=== PATIENT | male | born 1955 | race Caucasian/White ===

== ENCOUNTER 2019-02-04 12:50 | Emergency (ER) | payer OTHER, MEDICARE, MEDICAID ==
[~2019-02-04] VITALS: Ht 177.8 cm; Wt 127.0 kg
[~2019-02-04 12:50] MED LIST: AMBIEN10 MG OR; BACTRIM DS1 TAB OR; CEPHALEXIN500 MG OR; CLONIDINE0.1 MG OR; DILAUDID8 MG OR; DOXEPIN HCL10 MG PO; OPANA ER40 M1 PO; OPANA10 MG PO; OXYCODONE OR; XANAX XR1 MG PO; XANAX1 MG OR
[2019-02-04 13:17] LABS: IMMATURE GRANULOCYTES 0.3 % (0.0-5.0); MEAN CORPUSCULAR HGB 28.5 pG CALC (26.0-32.0); MEAN CORPUSCULAR HGB CONC 31.3 g/L CALC (32.0-36.0); NEUT# 4.88 thou/uL (1.82-7.42); RED BLOOD COUNT 4.24 mill/uL (4.70-6.10); RED CELL DISTRI WIDTH 13.1 % (11.5-15.5)
[2019-02-04 13:20] LABS: HEMATOCRIT 38.6 % (39.0-50.0); HEMOGLOBIN 12.1 g/dl (14.0-18.0)
[2019-02-04 14:11] LABS: ALBUMIN 4.3 g/dL (3.2-5.0); ALKALINE PHOSPHATASE 109 u/l (38-126); BUN 22 mg/dL (8-23); BUN/CREATININE RATIO 17 (12-20 (CALC)); CHLORIDE 110 mmol/l (95-108); CREATININE 1.3 mg/dL (0.7-1.3); GFR 55 ML/MIN (>=60 (CALC)); GFR FOR AFR.AMER. > 60 ML/MIN (>=60 (CALC)); POTASSIUM 4.3 mmol/l (3.5-5.1); SGOT/AST 30 u/l (19-48); SODIUM 142 mmol/l (137-146); TOTAL PROTEIN 7.7 g/dL (6.3-8.2)
[2019-02-04 14:18] LABS: ANION GAP 13 (6-22 (CALC)); BILIRUBIN, TOTAL 0.4 mg/dL (0.0-1.4); CARBON DIOXIDE 23 mmol/l (22-30)
[2019-02-04 14:23] LABS: MYOGLOBIN 145 ng/mL (0 - 121)
[2019-02-04] MEDS ORDERED: ZITHROMAX250 MG PO (15:08)
[2019-02-04] MEDS ORDERED: ROBITUSSIN AC10 ML PO (15:08)
[2019-02-04] MEDS ORDERED: MEDDOSEPAK PO (15:08)
[2019-02-04 16:00] VITALS: BP 162/68
== END 2019-02-04 16:38 | disposition home or self-care (01) | DRG 195 ==
LOC: ED 12:50
PROVIDERS: Emergency Medicine
DX: J18.9 Pneumonia, unspecified organism (principal); J06.9 Acute upper respiratory infection, unspecified; F17.210 Nicotine dependence, cigarettes, uncomplicated

== ENCOUNTER 2019-02-16 01:34 | Emergency (ER) | payer OTHER, MEDICARE ==
[~2019-02-16] VITALS: Ht 177.8 cm; Wt 125.0 kg
[~2019-02-16 01:34] MED LIST changes: +MEDDOSEPAK PO; +ROBITUSSIN AC10 ML PO; +ZITHROMAX250 MG PO
[2019-02-16] MEDS ORDERED: LORTAB 1010 MG PO (02:16)
[2019-02-16 02:20] VITALS: BP 146/64
== END 2019-02-16 03:40 | disposition home or self-care (01) | DRG 605 ==
LOC: ED 03:37
DX: S80.12XA Contusion of left lower leg, initial encounter (principal); W19.XXXA Unspecified fall, initial encounter

== ENCOUNTER 2019-02-20 21:05 | Emergency (ER) | payer OTHER, MEDICARE ==
[~2019-02-20] VITALS: Ht 208.3 cm; Wt 127.7 kg
[~2019-02-20 21:05] MED LIST changes: +LORTAB 1010 MG PO
[2019-02-20 23:00] VITALS: BP 131/91
[2019-02-20] MEDS ORDERED: VENTOLIN HF1 IN (23:10)
== END 2019-02-20 23:22 | disposition home or self-care (01) | DRG 563 ==
LOC: ED 21:05
DX: S93.401A Sprain of unspecified ligament of right ankle, initial encounter (principal); M19.071 Primary osteoarthritis, right ankle and foot; J40 Bronchitis, not specified as acute or chronic; I10 Essential (primary) hypertension; I25.10 Atherosclerotic heart disease of native coronary artery without angina pectoris; F17.200 Nicotine dependence, unspecified, uncomplicated; X50.0XXA Overexertion from strenuous movement or load, initial encounter

== ENCOUNTER 2019-05-06 | Observation (INO) | payer OTHER, MEDICARE ==
[~2019-05-06] MED LIST changes: +VENTOLIN HF1 IN
--- NOTE | 2019-05-06 10:02 | NUR ---
PATIENT TO ROOM VIA EMS AND PHYSICIAN AT BEDSIDE FOR EVAL
--- NOTE | 2019-05-06 10:39 | NUR ---
PT PRESENTS WITH CHEST PAIN THAT STARTED FOUR DAYS AGO. PT DISCRIBES RADIATING PAIN THAT RADIATES DOWN BOTH ARMS. PT FEELS NUMBNESS AND TINGLING IN HANDS BILATERALLY. EKG=NSR. CAP REFILL BRISK. O2SAT 95%. PT DENIES ANY DIZZINESS, SOB, N/V. PAIN 11/12 PTS OTHER CONCERN IS AN ULCER THAT BURST YESTERDAY ON HIS HEEL. THERE IS A 5CM x 5CM BLISTER BURST ON THE BOTTOM OF LEFT HEEL. WILL CONTINUE TO MONITOR.
--- NOTE | 2019-05-06 10:40 | NUR ---
PT WAS INFORMED ABOUT A URINE SAMPLE THAT IS NEEDED. PT STATED THAT HE HAD NOT HAD ANYTHING TO DRINK IN TWO DAYS AND WILL NOT BE ABLE TO PROVIDE A SAMPLE. PT WAS OFFERED WATER PO FLUID TO ENCOURAGE URINATION, PT DECLINED. "I DONT DRINK WATER, GIVE ME SODA". A COLA DRINK WAS GIVIN.
[2019-05-06 11:10] LABS: HEMATOCRIT 38.1 % (39.0-50.0); HEMOGLOBIN 11.9 g/dl (14.0-18.0); IMMATURE GRANULOCYTES 0.5 % (0.0-5.0); MEAN CORPUSCULAR HGB 26.7 pG CALC (26.0-32.0); MEAN CORPUSCULAR HGB CONC 31.2 g/L CALC (32.0-36.0); NEUT# 9.22 thou/uL (1.82-7.42); RED BLOOD COUNT 4.46 mill/uL (4.70-6.10); RED CELL DISTRI WIDTH 14.6 % (11.5-15.5)
[2019-05-06 11:15] LABS: MEAN CELL VOLUME 85.4 fL CALC (80.0-100.0)
[2019-05-06] MEDS ORDERED: DILAUDID8 MG PO (11:15)
[2019-05-06] MEDS ORDERED: OXYCONTIN40 MG PO (11:16)
--- NOTE | 2019-05-06 11:18 | NUR ---
PT REMINDED ABOUT URINE SAMPLE AND PT RESPONDED "THAT AINT GONNA HAPPEN RIGHT NOW I TELL YOU THAT MUCH". I OFFERED TO GIVE HIM WATER AND HE DECLINED BY SAYING "I DONT DRINK WATER, I TOLD YOU ALREADY." PT DENIED ANY OTHER NEEDS, WILL CONTINUE TO MONITOR
[2019-05-06 11:29] LABS: ALBUMIN 3.8 g/dL (3.2-5.0); ALKALINE PHOSPHATASE 72 u/l (38-126); ANION GAP 15 (6-22 (CALC)); BILIRUBIN, TOTAL 0.5 mg/dL (0.0-1.4); BUN 16 mg/dL (8-23); BUN/CREATININE RATIO 19 (12-20 (CALC)); CARBON DIOXIDE 22 mmol/l (22-30); CHLORIDE 108 mmol/l (95-108); CREATININE 0.8 mg/dL (0.7-1.3); GFR > 60 ML/MIN (>=60 (CALC)); GFR FOR AFR.AMER. > 60 ML/MIN (>=60 (CALC)); SGOT/AST 21 u/l (19-48); SODIUM 142 mmol/l (137-146); TOTAL PROTEIN 7.2 g/dL (6.3-8.2)
[2019-05-06 11:42] LABS: MYOGLOBIN 34 ng/mL (0 - 121)
--- NOTE | 2019-05-06 12:12 | NUR ---
SBAR PRINTED TO FLOOR
--- NOTE | 2019-05-06 13:34 | NUR ---
PT TRAY SET ASSIDE. PT WAS REMINDED THE IMPORTANCE OF LAYING WITH ALL BODY PARTS IN STRETCHER ALIGNED TO NOT FALL OUT OF BED. PT STATED "I AINT FALLING OUT YOU ARE OUT OF YOUR MIND. I AM COMFORTABLE THIS WAY"
--- NOTE | 2019-05-06 14:15 | NUR ---
ATTEMPTED TO GIVE REPORT TO ANDRES, HEAT TREATING FURNACE TENDER NOTIFIED ME THAT NURSE WAS ADMINISTERING A MEDICATION. NURSE IS SAIT TO BE CALLING ME BACK WHEN AVAILIABLE
--- NOTE | 2019-05-06 14:34 | NUR ---
REPORT CAROLINE CAMPOS RN
--- NOTE | 2019-05-06 14:43 | NUR ---
PT TRANSPORTED VIA W/C TO MED SURG IN STABLE COND AND IN NO DISTRESS. CARE ASSUMED TO KELSIE
--- NOTE | 2019-05-06 14:43 | NUR ---
RECEIVED FROM ER VIA WC INTO ROOM 273. AMBULATED TO STANDING SCALE FOR ADMISSION WEIGHT AND THEN TO BED. ORIENTED TO SURROUNDSING. EXPLAINED USE OF CALL ORTIZ, TV AND BED CONTROLS.
--- NOTE | 2019-05-06 15:00 | NUR ---
ADMISSION ASSESSMENT COMPLETED. PATIENT CALM AND COOPERATIVE. RESP NON-LABORED. LUNGS CLEAR. DRESSING TO RIGHT FOOT IN PLACE, CDI.
[2019-05-06 16:17] VITALS: BP 170/60
--- NOTE | 2019-05-06 16:30 | NUR ---
SITTING AT SIDE OF BED. C/O RIGHT FOOT PAIN. OFFERED TYLENOL OR MOTRIN AND PATIENT REFUSES. PATIENT STATES "I HAVE STRONGER STUFF THAN THAT AT HOME."
--- NOTE | 2019-05-06 17:30 | NUR ---
BLOOD DRAWN FROM SALINE LOCK FOR TROPONIN LEVEL. PATIENT STATES HE IS GOING TO LEAVE AMA REQUESTING PAIN MED OTHER THAN TYLENOL OR MOTRIN WHICH HAVE BEEN OFFERED TO HIM.
--- NOTE | 2019-05-06 19:15 | NUR ---
SALINE LOCK IN LAC DC'D WITH CATHETER INTACT. DR MO INFORMED OF PATIENT LEAVING AMA. PATIENT ESCORTED TO ER WAITING ROOM FOR HIS RIDE.
[2019-05-07] MEDS ORDERED: BACTRIM DS1 TAB PO (12:53)
[2019-10-17] MEDS ORDERED: HYDROCODONE/ACE1 TAB PO (16:10)
== END 2019-05-06 19:10 | disposition left against medical advice (07) | DRG 313 ==
PROVIDERS: Emergency Medicine; ADMIT Internal Medicine
DX: R07.9 Chest pain, unspecified (principal); L97.419 Non-pressure chronic ulcer of right heel and midfoot with unspecified severity; I10 Essential (primary) hypertension; I25.10 Atherosclerotic heart disease of native coronary artery without angina pectoris; F17.200 Nicotine dependence, unspecified, uncomplicated; Z95.1 Presence of aortocoronary bypass graft
CPT/HCPCS: G0378

== ENCOUNTER 2019-05-07 | Emergency (ER) | payer OTHER, MEDICARE ==
[~2019-05-07] MED LIST changes: +DILAUDID8 MG PO; +OXYCONTIN40 MG PO
[2019-05-07 12:02] LABS: HEMATOCRIT 38.8 % (39.0-50.0); HEMOGLOBIN 11.8 g/dl (14.0-18.0); IMMATURE GRANULOCYTES 0.4 % (0.0-5.0); MEAN CELL VOLUME 87.6 fL CALC (80.0-100.0); MEAN CORPUSCULAR HGB 26.6 pG CALC (26.0-32.0); MEAN CORPUSCULAR HGB CONC 30.4 g/L CALC (32.0-36.0); NEUT# 7.02 thou/uL (1.82-7.42); RED BLOOD COUNT 4.43 mill/uL (4.70-6.10); RED CELL DISTRI WIDTH 14.9 % (11.5-15.5)
[2019-05-07] MEDS ORDERED: BACTRIM DS1 TAB PO (12:53)
[2019-05-07 12:56] LABS: ALKALINE PHOSPHATASE 83 u/l (38-126); ANION GAP 13 (6-22 (CALC)); BILIRUBIN, TOTAL 0.4 mg/dL (0.0-1.4); BUN 20 mg/dL (8-23); BUN/CREATININE RATIO 22 (12-20 (CALC)); CARBON DIOXIDE 24 mmol/l (22-30); CHLORIDE 109 mmol/l (95-108); CREATININE 0.9 mg/dL (0.7-1.3); GFR > 60 ML/MIN (>=60 (CALC)); GFR FOR AFR.AMER. > 60 ML/MIN (>=60 (CALC)); SGOT/AST 21 u/l (19-48); SODIUM 142 mmol/l (137-146); TOTAL PROTEIN 7.9 g/dL (6.3-8.2)
[2019-05-07 13:00] LABS: URINE BILIRUBIN - DIPSTICK NEGATIVE (NEGATIVE); URINE BLOOD DIPSTICK NEGATIVE (NEGATIVE); URINE COLOR YELLOW; URINE GLUCOSE - DIPSTICK NEGATIVE (NEGATIVE); URINE KETONE NEGATIVE (NEGATIVE); URINE LEUK ESTERASE NEGATIVE (NEGATIVE); URINE NITRITE - DIPSTICK NEGATIVE (Negative); URINE PROTEIN - DIPSTICK TRACE mg/dL (NEG-TRACE); URINE SPECIFIC GRAVITY 1.025; URINE UROBILINOGEN - DIPSTICK 0.2 E.U./dL (0.2)
[2019-05-07 13:08] LABS: MYOGLOBIN 29 ng/mL (0 - 121)
[2019-10-17] MEDS ORDERED: HYDROCODONE/ACE1 TAB PO (16:10)
== END 2019-05-07 12:56 | disposition left against medical advice (07) | DRG 313 ==
PROVIDERS: Emergency Medicine
DX: R07.9 Chest pain, unspecified (principal); R06.02 Shortness of breath; I10 Essential (primary) hypertension; I25.10 Atherosclerotic heart disease of native coronary artery without angina pectoris; Z95.1 Presence of aortocoronary bypass graft; Z91.19 Patient's noncompliance with other medical treatment and regimen

== ENCOUNTER 2019-06-05 14:23 | Emergency (ER) | payer MEDICARE ==
[~2019-06-05 14:23] MED LIST changes: +BACTRIM DS1 TAB PO
[2019-06-05 14:31] VITALS: BP 146/129
[2019-10-17] MEDS ORDERED: HYDROCODONE/ACE1 TAB PO (16:10)
== END 2019-06-05 14:50 | disposition left against medical advice (07) ==
LOC: ED 14:23 → LWOBS 14:49 → ED 14:49 → LWOBS 14:50
DX: Z53.21 Procedure and treatment not carried out due to patient leaving prior to being seen by health care provider (principal)

== ENCOUNTER 2019-06-22 | Emergency (ER) | payer MEDICARE ==
[2019-06-22 16:02] LABS: URINE BILIRUBIN - DIPSTICK NEGATIVE (NEGATIVE); URINE BLOOD DIPSTICK NEGATIVE (NEGATIVE); URINE COLOR YELLOW; URINE GLUCOSE - DIPSTICK NEGATIVE (NEGATIVE); URINE KETONE NEGATIVE (NEGATIVE); URINE LEUK ESTERASE NEGATIVE (NEGATIVE); URINE NITRITE - DIPSTICK NEGATIVE (Negative); URINE PH 8.5 (4.5-8.0); URINE PROTEIN - DIPSTICK NEGATIVE (NEG-TRACE); URINE SPECIFIC GRAVITY 1.025; URINE UROBILINOGEN - DIPSTICK 0.2 E.U./dL (0.2)
[2019-06-22 16:05] LABS: BARBITURATES NEGATIVE (NEGATIVE); COCAINE NEGATIVE (NEGATIVE); METHADONE NEGATIVE (NEGATIVE); OXCYCODONE POSITIVE (NEGATIVE); TETRAHYDROCANNABIONOL NEGATIVE (NEGATIVE); TRICYLIC ANTIDEPRESSANTS NEGATIVE (NEGATIVE)
[2019-06-22 17:36] LABS: HEMATOCRIT 33.7 % (39.0-50.0); IMMATURE GRANULOCYTES 0.4 % (0.0-5.0); MEAN CELL VOLUME 83.8 fL CALC (80.0-100.0); MEAN CORPUSCULAR HGB 24.9 pG CALC (26.0-32.0); MEAN CORPUSCULAR HGB CONC 29.7 g/dL CAL (32.0-36.0); NEUT# 6.79 thou/uL (1.82-7.42); RED BLOOD COUNT 4.02 mill/uL (4.70-6.10); RED CELL DISTRI WIDTH 16.6 % (11.5-15.5)
[2019-06-22 17:57] LABS: ALBUMIN 3.2 g/dL (3.2-5.0); ALKALINE PHOSPHATASE 84 u/l (38-126); BILIRUBIN, TOTAL 0.5 mg/dL (0.0-1.4); BUN 7 mg/dL (8-23); BUN/CREATININE RATIO 12 (12-20 (CALC)); CHLORIDE 105 mmol/l (95-108); CREATININE 0.6 mg/dL (0.7-1.3); ETHYL ALCOHOL 0 mg/dl (0-30); GFR > 60 ML/MIN (>=60 (CALC)); GFR FOR AFR.AMER. > 60 ML/MIN (>=60 (CALC)); MAGNESIUM 1.8 mg/dL (1.6-2.3); POTASSIUM 4.8 mmol/l (3.5-5.1); SGOT/AST 27 u/l (19-48); SODIUM 139 mmol/l (137-146); TOTAL PROTEIN 6.5 g/dL (6.3-8.2)
[2019-06-22 18:02] LABS: ANION GAP 10 (6-22 (CALC)); CARBON DIOXIDE 29 mmol/l (22-30)
[2019-10-17] MEDS ORDERED: HYDROCODONE/ACE1 TAB PO (16:10)
== END 2019-06-22 23:45 ==
PROVIDERS: Family Medicine
DX: R45.851 Suicidal ideations (principal); J44.1 Chronic obstructive pulmonary disease with (acute) exacerbation; G89.29 Other chronic pain; I10 Essential (primary) hypertension; I25.10 Atherosclerotic heart disease of native coronary artery without angina pectoris; F17.200 Nicotine dependence, unspecified, uncomplicated

== ENCOUNTER 2019-07-20 11:46 | Inpatient (IN) | payer OTHER, MEDICARE ==
[~2019-07-20] VITALS: Ht 177.8 cm; Wt 124.0 kg
--- NOTE | 2019-07-20 11:55 | NUR ---
PT TO ROOM VIA WHEELCHAIR FOR BEDSIDE TRIAGE.
--- NOTE | 2019-07-20 12:15 | NUR ---
IV SITE TO THE LEFT HAND OBTAINED SITE IS POSITIONAL. MD AWARE AND WILL ORDER A MID LINE.
--- NOTE | 2019-07-20 12:20 | NUR ---
MEDICATIONS NOT GIVIN AT THIS TIME BECAUSE OF ORDERED PICC LINE
--- NOTE | 2019-07-20 13:00 | NUR ---
PT PRESENSTS WITH SWOLLEN, DARK PIGMENTED HOT TO THE TOUCH RIGHT LEG. SWELLING AND PIGMENTATION REACHES ABOUT MID THEIGH. PT HAS A 5CM BY 5CM ULCER IN THE RIGHT HEEL WITH SLOTHING. WHEN REMOVING DRESSING, TISSUE AND SLOTH WAS STICKING TO BANDAGE. PT STATES HAVING THIS PROBLEM FOR TWO MONTHS. PT STATES NOT FOLLOWING UP WITH APPOINTMENTS FOR WOUND CARE. WILL CONTINUE TO [facility].
[2019-07-20 13:05] LABS: HEMATOCRIT 32.8 % (39.0-50.0); HEMOGLOBIN 9.8 g/dl (14.0-18.0); IMMATURE GRANULOCYTES 0.2 % (0.0-5.0); MEAN CELL VOLUME 83.2 fL CALC (80.0-100.0); MEAN CORPUSCULAR HGB 24.9 pG CALC (26.0-32.0); MEAN CORPUSCULAR HGB CONC 29.9 g/dL CAL (32.0-36.0); NEUT# 6.66 thou/uL (1.82-7.42); RED BLOOD COUNT 3.94 mill/uL (4.70-6.10); RED CELL DISTRI WIDTH 17.9 % (11.5-15.5)
--- NOTE | 2019-07-20 13:52 | NUR ---
PT RETURNED FOR RECIEVING PICC LINE INSERTION. MEDS INTITIATED. MONITOR CONNECTED. PT DENIES ANY OTHER NEEDS
--- NOTE | 2019-07-20 14:00 | NUR ---
PT RECONNECTED TO MONITORING EQUIPMENT. AND CALL LIGHT PLACED WITHIN REACH
--- NOTE | 2019-07-20 15:11 | NUR ---
PT AT MRI
[2019-07-20] MEDS ORDERED: OXYCODONE5 M1 PO (15:14)
--- NOTE | 2019-07-20 15:15 | NUR ---
UPDATED MED REC PER CLAIMS HISTORY
--- NOTE | 2019-07-20 15:18 | NUR ---
VITALS ARE NOT TAKEN EVERY HOUR SINCE PT WAS IN CT FOR PICC LINE AND MRI
[2019-07-20 15:47] LABS: URINE BILIRUBIN - DIPSTICK NEGATIVE (NEGATIVE); URINE BLOOD DIPSTICK NEGATIVE (NEGATIVE); URINE COLOR YELLOW; URINE GLUCOSE - DIPSTICK NEGATIVE (NEGATIVE); URINE KETONE NEGATIVE (NEGATIVE); URINE LEUK ESTERASE NEGATIVE (NEGATIVE); URINE NITRITE - DIPSTICK NEGATIVE (Negative); URINE PROTEIN - DIPSTICK NEGATIVE (NEG-TRACE); URINE SPECIFIC GRAVITY >=1.030
--- NOTE | 2019-07-20 16:35 | NUR ---
COMMUNICATION HANDOFF REPORT RECEIVED FROM KIRSTIN CHILDS RN. AWAITING PT'S ARRIVAL TO ROOM
--- NOTE | 2019-07-20 16:40 | NUR ---
GAVE REPORT TO TAN
--- NOTE | 2019-07-20 17:30 | NUR ---
PT WAS TAKEN LATER THEN WANTED BECAUSE OF ATTENDANCE TO A CRITICAL PT. PT TRANSPORTED TO [facility] STABLE AND IN NO DISTRESS VIA STRETCHER. CARE ASSUMED TO TAN Admission Note Report Given to: Transported by: Wheelchair X Stretcher Transported with: X Nurse Transporter X Patent IV O2 Silk Examiner Location: ICU X MS2
--- NOTE | 2019-07-20 17:35 | NUR ---
PT ORIENTED TO ROOM, CALL LIGHT, BED CONTROL AND TV REMOTE. PT IS ABLE TO MAKE HIS NEEDS KNOWN. PT COMPLAIN OF 9/10 PAIN. PT STATES TYLENOL NOT EFFECTIVE IN ONTROLLING HIS PAIN. CPA TAX WILL ADMINISTER PAIN MEDS PER ORDER
[2019-07-20 17:40] VITALS: BP 167/79
[2019-07-20 19:11] VITALS: BP 110/60
--- NOTE | 2019-07-20 19:37 | NUR ---
PT SITTING ON THE SIDE OF THE BED. A&O X3. PT C/O RT LEG PAIN. WOUNDS NOTED TO THE SIDE OF THE RT LEG AND TO THE RT HEEL. PER PT HE WAS GETTING WOUND CARE THROUGH HOME [facility]ALTH AND THEY D/C HIS VISITS. PICTURES TO BE OBTAINED AND PLACED IN THE CHART WITH A DRESSING TO BE APPLIED UNTIL WOUND CARE CAN BE CONSULTED. ASSESSMENT COMPLETED. DISCUSSED POC. CALL LIGHT IN REACH. CONTINUE TO MONITOR.
[2019-07-20 19:40] LABS: ALBUMIN 3.1 g/dL (3.2-5.0); ALKALINE PHOSPHATASE 81 u/l (38-126); ANION GAP 8 (6-22 (CALC)); BILIRUBIN, TOTAL 0.5 mg/dL (0.0-1.4); BUN 13 mg/dL (8-23); BUN/CREATININE RATIO 21 (12-20 (CALC)); CARBON DIOXIDE 33 mmol/l (22-30); CHLORIDE 101 mmol/l (95-108); CREATININE 0.6 mg/dL (0.7-1.3); GFR > 60 ML/MIN (>=60 (CALC)); GFR FOR AFR.AMER. > 60 ML/MIN (>=60 (CALC)); SGOT/AST 16 u/l (19-48); SODIUM 138 mmol/l (137-146)
[2019-07-20 19:41] LABS: POTASSIUM 3.6 mmol/l (3.5-5.1)
--- NOTE | 2019-07-21 00:02 | NUR ---
PT SLEEPING IN BED. NO DISTRESS NOTED. RESP EVEN AND UNLABORED. CONTINUE TO MONITOR.
[2019-07-21 04:17] VITALS: BP 143/74
--- NOTE | 2019-07-21 05:03 | NUR ---
PT SLEEPING IN BED. RESP EVEN AND UNLABORED. CONTINUE TO MONITOR
--- NOTE | 2019-07-21 06:29 | NUR ---
DRESSING APPLIED TO WOUNDS WITH HEEL PROTECTORS IN PLACE. PT TOLERATED WELL.
--- NOTE | 2019-07-21 07:05 | NUR ---
REPORT RECEIVED FROM ANN BAILEY. PT RESTING IN BED SEMI FOWLERS WITH HAT OVER FACE; OREINTED X 3. C/O 8/10 RLE PAIN. DRESSING TO RIGHT HEEL AND KELLER CDI. RESPIRATIONS EVEN AND UNLABORED ON ROOM AIR. PLAN OF CARE REVIEWED. PT ENCOURAGED TO VERBALIZE CONCERNS. STATES UNDERSTANDING. SAFETY MEASURES IN PLACE. CALL LIGHT WITHIN REACH.
[2019-07-21 08:00] VITALS: BP 144/69
--- NOTE | 2019-07-21 10:35 | NUR ---
LATOYA 5MG GIVEN PER REQUEST FOR 810 RLE PAIN.
[2019-07-21] MEDS ORDERED: MAXIDE1 COMBO PO (10:40)
[2019-07-21] MEDS ORDERED: SIMVASTATIN40 MG PO (10:40)
[2019-07-21] MEDS ORDERED: CITALOPRAM10 M1 PO (10:41)
[2019-07-21 16:00] VITALS: BP 150/73
[2019-07-21 19:25] VITALS: BP 159/70
--- NOTE | 2019-07-21 19:45 | NUR ---
PT SLEEPING IN BED. NO DISTRESS NOTED, AWAKENED TO COMPLETE ASSESSMENT. PT NOT INTERACTING WITH CONVERSATION AND STATES THAT ALL HE NEEDS IS SOME PAIN MEDICATION, EXPLAINED THAT I WOULD VERIFY WHEN HE COULD HAVE SOME MEDICATION, PT VERBALIZED UNDERSTANDING. WOUND LEFT OPEN TO AIR PER REPORT AND AFTER THE VISIT OF DR TORREZ. WILL FOLLOW UP ON CONSULT NOTE. ASSESSMENT COMPLETED. DISCUSSED POC. CALL LIGHT IN REACH. CONTINUE TO MONITOR.
--- NOTE | 2019-07-21 22:55 | NUR ---
PER PT "5 MG OF OXYCODONE IS NOT GOING TO DO ANYTHING FOR ME RIGHT NOW", TOLD PT THAT 40 MG TAB WAS GIVEN AN HOUR PRIOR. PT QUESTIONED THE ACCURACY OF THE MEDICATION ADMINISTRATION, SHOWED PT THE TIME THE MEDICATION WAS ADMINISTERED. PT VERBALIZED UNDERSTANDING.
--- NOTE | 2019-07-21 23:00 | NUR ---
DRESSING CHANGE DONE TO RT HEEL AND WOUND TO THE SIDE OF THE RT LEG. PT TOLERATED WELL.
[2019-07-22 04:20] VITALS: BP 153/63
[2019-07-22 05:48] VITALS: BP 92/60
[2019-07-22 08:15] VITALS: BP 169/59
--- NOTE | 2019-07-22 08:15 | NUR ---
ASSESSMENT IS COMPLETED: IV SITE IS FREE FROM REDNESS OR EDEMA. HR IS REG, PULSES ARE STRONG X4., ABD IS SOFT WITH ACTIVE BS R LEG HAS A DRESSING IS CDI. HAS +3 PITTING EDEMA NOTED. ON R LEG.
--- NOTE | 2019-07-22 12:45 | NUR ---
PT WANTED TO GO TO THE BATHROOM INSISTED ON HAVING IV DISCONNECTED. FLUSHED WELL. CONTINUE TO OBSERVE AND MONITOR.
--- NOTE | 2019-07-22 16:05 | NUR ---
PT IS REQUESTING PAIN MEDICATION. INFORMED OF WHAT WAS ORDERED AND WHEN ITS DUE. INQUIRED ABOUT GETTING ANYTHING ELSE. WAS TOLD NO .
[2019-07-22 18:55] VITALS: BP 198/98
--- NOTE | 2019-07-22 19:20 | NUR ---
REPORT RECEIVED FROM ANN [place]. PT RESTING IN BED. PT BP ELIVATED. MD TO BE NOTIFIED. SAFETY PRECAUTIONS IN PLACE. WILL CONTINUE TO MONITOR.
--- NOTE | 2019-07-22 19:30 | NUR ---
SPOKEW ITH DR MO RE: BP BEING HIGH, HOME MEDICATIONS WERE STOPPED. AND NOW REORDERED BY DR MO.
--- NOTE | 2019-07-22 19:45 | NUR ---
PT BP ELIVATED, PT MEDICATED PER EMAR ORDERS.
[2019-07-22 20:57] VITALS: BP 117/74
[2019-07-22 20:58] VITALS: BP 177/78
--- NOTE | 2019-07-22 21:24 | NUR ---
PT RESTING IN BED ALERT AND ORIENTED. RESPIRATIONS EVEN AND UNLABORED ON RA. LUNGS SOUND CLEAR. PEDAL PULSES WEAK. DRESSING TO RIGHT FOOT CHANGED PT TOLERATED WELL. SAFETY PRECAUTIONS IN [place]. WILL CONTINUE TO MONITOR.
[2019-07-23 00:23] VITALS: BP 186/82
--- NOTE | 2019-07-23 01:33 | NUR ---
PT RESTING IN BED AlERT AND ORIETNED. PT BP ELIVATED, PT MEDICATED PER EMAR ORDERS. SAFETY PRECAUTIONS IN PLACE. WILL CONTINUE TO MONITOR.
[2019-07-23 03:00] VITALS: BP 144/66
--- NOTE | 2019-07-23 04:05 | NUR ---
PT RESTING IN BED, NO S/S OF DISTRESS AT THIS TIME. SAFETY PRECAUTIONS IN PLACE. WILL CONTINUE TO MONITOR.
[2019-07-23 05:52] LABS: HEMATOCRIT 31.7 % (39.0-50.0); HEMOGLOBIN 9.5 g/dl (14.0-18.0); IMMATURE GRANULOCYTES 0.1 % (0.0-5.0); MEAN CELL VOLUME 82.1 fL CALC (80.0-100.0); MEAN CORPUSCULAR HGB 24.6 pG CALC (26.0-32.0); NEUT# 3.99 thou/uL (1.82-7.42); RED BLOOD COUNT 3.86 mill/uL (4.70-6.10); RED CELL DISTRI WIDTH 17.9 % (11.5-15.5)
[2019-07-23 06:11] LABS: ALBUMIN 2.8 g/dL (3.2-5.0); ALKALINE PHOSPHATASE 68 u/l (38-126); ANION GAP 6 (6-22 (CALC)); BILIRUBIN, TOTAL 0.3 mg/dL (0.0-1.4); BUN 7 mg/dL (8-23); BUN/CREATININE RATIO 11 (12-20 (CALC)); CARBON DIOXIDE 34 mmol/l (22-30); CHLORIDE 101 mmol/l (95-108); CREATININE 0.7 mg/dL (0.7-1.3); GFR > 60 ML/MIN (>=60 (CALC)); GFR FOR AFR.AMER. > 60 ML/MIN (>=60 (CALC)); POTASSIUM 3.9 mmol/l (3.5-5.1); SGOT/AST 15 u/l (19-48); SODIUM 138 mmol/l (137-146); TOTAL PROTEIN 5.6 g/dL (6.3-8.2)
[2019-07-23 08:00] VITALS: BP 117/81
--- NOTE | 2019-07-23 09:00 | NUR ---
PT AWAKE, ALERT, ORIENTED X 3. PT PROVIDED PAIN MEDS FIRST THING THIS MORNING. RIGHT LEG WITH DRESSING SEEN.
--- NOTE | 2019-07-23 12:32 | NUR ---
PT REMAINS AT REST IN THE BED, NO CHANGE IN STATUS.
[2019-07-23 15:30] VITALS: BP 176/73
--- NOTE | 2019-07-23 18:21 | NUR ---
DRESSING CHANGED TO RIGHT FOOT. HEEL SEEN WITH AREA OF GRANULATING TISSUE, BUT IT IS MISSING SKIN. DISCOLORATION TO BILATERAL LEGS PER REPEATED SWELLING AND NO SWELLING. PT TOLERATED WELL.
--- NOTE | 2019-07-23 19:10 | NUR ---
REPORT RECEIVED FROM ANGELO NEWMAN. PT RESTING IN BED, PT PB ELIVATED, PT TO BE MEDICATED PER EMAR ORDERS. SAFETY PRECAUTIONS IN PLACE. WILL CONTINUE TO MONITOR.
[2019-07-23 19:13] VITALS: BP 181/84
[2019-07-23 21:29] VITALS: BP 177/96
--- NOTE | 2019-07-23 21:30 | NUR ---
PT RESTING IN BED, ALERT AND OREINTED. RESPIRATIONS EVEN AND UNLABORED ON RA. LUNGS SOUND DIMINISHED. PEDAL PULSES WEAK. DRESSING TO RIGHT FOOT CLEAN DRY AND INTACT. SAFETY PRECAUTIONS IN PLACE. WILL CONTINUE TO MONITOR.
--- NOTE | 2019-07-24 00:02 | NUR ---
PT RESTING IN BED, RESPIRATIONS EVEN AND UNLABORED ON RA. NO S/S OF DISTRESS AT THIS TIME SAFETY PRECAUTIONS IN PLACE. WILL CONITNUE TO MONITOR
--- NOTE | 2019-07-24 04:42 | NUR ---
PT RESTING IN BED. FREE FROM DISTRESS. SAFETY PRECAUTIONSIN PLACE. WILL CONTOINUE TO MONITOR
[2019-07-24 04:48] VITALS: BP 186/107
[2019-07-24 07:50] VITALS: BP 142/57
--- NOTE | 2019-07-24 07:50 | NUR ---
ASSESSMENT IS COMPLTED: IV SITE IS FREE FROM REDNESS OR EDEMA. HR IS REG,PULSES ARE STRONG X4, ABD IS SOFT WITH ACTIVE BS. BREATH SOUNDS ARE CLEAR,BILATERALLY. CONTINUE TO OSBERVE AND MONITOR.
[2019-07-24] MEDS ORDERED: AMLODIPINE BESYL5 MG PO (10:50)
[2019-07-24] MEDS ORDERED: LIPITOR20 MG PO (10:50)
[2019-07-24] MEDS ORDERED: CIPROFLOXACN500 MG PO (10:50)
[2019-07-24] MEDS ORDERED: LASIX20 MG PO (10:53)
[2019-07-24] MEDS ORDERED: COZAAR50 MG PO (10:53)
--- NOTE | 2019-07-24 12:45 | NUR ---
PT DISCONNECTS IV SITE FROM FLUIDS. STATING" ITS NOT RUNNING ANY WAY". ATTEMPTED TO EXPLAIN THAT IT IS ONLY GOING 10 PER HR. TRYING TO GET A HOLD OF FAMILY FOR DISCHARGE NO ONE AT HOME.
--- NOTE | 2019-07-24 13:24 | NUR ---
PT REQUESTING PAIN MEDICATION. TOO SOON
--- NOTE | 2019-07-24 15:04 | NUR ---
INQUIRED WITH PT IF HE HAD A NOTHER NUMBER TO REACH FAMILY STATES " THATS THE ONLY NUMBER".
[2019-07-24 15:33] VITALS: BP 143/76
--- NOTE | 2019-07-24 16:20 | NUR ---
PT IS RELAXING. IN BED C/O HEADACHE. CONTINEU TO OSBERVE AND MONITOR.
--- NOTE | 2019-07-24 16:30 | NUR ---
REPORT RECEIVED FROM ANN PIERRE. PT TO BE DISCHARGED WHEN PT'S RIDE ARRIVES.
--- NOTE | 2019-07-24 17:00 | NUR ---
Discharge instructions given. Patient verbalizes understanding of same. Discharged in good condition via Wheelchair to Home with family. All belongings sent with pt.
[2019-10-17] MEDS ORDERED: HYDROCODONE/ACE1 TAB PO (16:10)
== END 2019-07-24 17:00 | disposition home health service (06) | DRG 602 ==
LOC: ED 11:46 → ED-I 12:31 → ED 15:11 → ED-I 15:12 → MS2 15:12
PROVIDERS: Family Medicine; Nurse Practitioner Family; ADMIT Internal Medicine; ATTEND Internal Medicine
PROC: 02HV33Z Insertion of Infusion Device into Superior Vena Cava, Percutaneous Approach (ICD-10-PCS; principal; 2019-07-20)
PROC: B518ZZA Fluoroscopy of Superior Vena Cava, Guidance (ICD-10-PCS; 2019-07-20)
DX: L03.115 Cellulitis of right lower limb (principal); L89.613 Pressure ulcer of right heel, stage 3; L97.819 Non-pressure chronic ulcer of other part of right lower leg with unspecified severity; L97.412 Non-pressure chronic ulcer of right heel and midfoot with fat layer exposed; I87.311 Chronic venous hypertension (idiopathic) with ulcer of right lower extremity; L97.413 Non-pressure chronic ulcer of right heel and midfoot with necrosis of muscle; I10 Essential (primary) hypertension; I25.10 Atherosclerotic heart disease of native coronary artery without angina pectoris; I73.9 Peripheral vascular disease, unspecified; J44.9 Chronic obstructive pulmonary disease, unspecified; E66.01 Morbid (severe) obesity due to excess calories; M77.31 Calcaneal spur, right foot; F17.200 Nicotine dependence, unspecified, uncomplicated; B96.89 Other specified bacterial agents as the cause of diseases classified elsewhere; Z68.39 Body mass index [BMI] 39.0-39.9, adult; Z95.1 Presence of aortocoronary bypass graft; Z91.19 Patient's noncompliance with other medical treatment and regimen; B96.4 Proteus (mirabilis) (morganii) as the cause of diseases classified elsewhere; R60.9 Edema, unspecified; E66.9 Obesity, unspecified; E11.65 Type 2 diabetes mellitus with hyperglycemia; E11.621 Type 2 diabetes mellitus with foot ulcer
CPT/HCPCS: A6210; A6212; G0378; L3260

== ENCOUNTER 2019-09-25 07:05 | Emergency (ER) | payer OTHER, MEDICARE ==
[~2019-09-25] VITALS: Ht 177.8 cm; Wt 150.0 kg
[~2019-09-25 07:05] MED LIST changes: +AMLODIPINE BESYL5 MG PO; +CIPROFLOXACN500 MG PO; +CITALOPRAM10 M1 PO; +COZAAR50 MG PO; +LASIX20 MG PO; +LIPITOR20 MG PO; +MAXIDE1 COMBO PO; +OXYCODONE5 M1 PO; +SIMVASTATIN40 MG PO
[2019-09-25 07:47] LABS: HEMATOCRIT 32.6 % (39.0-50.0); HEMOGLOBIN 9.9 g/dl (14.0-18.0); IMMATURE GRANULOCYTES 0.4 % (0.0-5.0); MEAN CELL VOLUME 83.2 fL CALC (80.0-100.0); MEAN CORPUSCULAR HGB 25.3 pG CALC (26.0-32.0); MEAN CORPUSCULAR HGB CONC 30.4 g/dL CAL (32.0-36.0); NEUT# 7.11 thou/uL (1.82-7.42); RED BLOOD COUNT 3.92 mill/uL (4.70-6.10); RED CELL DISTRI WIDTH 21.6 % (11.5-15.5)
[2019-09-25 08:14] LABS: ALKALINE PHOSPHATASE 63 u/l (38-126); ANION GAP 10 (6-22 (CALC)); BILIRUBIN, TOTAL 0.4 mg/dL (0.0-1.4); BUN 24 mg/dL (8-23); BUN/CREATININE RATIO 32 (12-20 (CALC)); CARBON DIOXIDE 28 mmol/l (22-30); CHLORIDE 104 mmol/l (95-108); CREATININE 0.7 mg/dL (0.7-1.3); ETHYL ALCOHOL 0 mg/dl (0-30); GFR > 60 ML/MIN (>=60 (CALC)); GFR FOR AFR.AMER. > 60 ML/MIN (>=60 (CALC)); LIPASE 61 u/l (23-300); POTASSIUM 3.9 mmol/l (3.5-5.1); SODIUM 138 mmol/l (137-146)
[2019-09-25 08:16] LABS: ACT PARTIAL THROMBO TIME 26.8 SECONDS (20.0-32.5); INTERNATIONAL NORMALIZED RATIO 1.1 RATIO (0.7-1.3); PROTHROMBIN TIME 11.2 SECONDS (9.0-12.5)
[2019-09-25 08:20] LABS: ALBUMIN 3.9 g/dL (3.2-5.0); SGOT/AST 33 u/l (19-48); TOTAL PROTEIN 7.4 g/dL (6.3-8.2)
[2019-09-25 08:25] LABS: MYOGLOBIN 33 ng/mL (0 - 121)
[2019-09-25 09:34] LABS: URINE BILIRUBIN - DIPSTICK NEGATIVE (NEGATIVE); URINE BLOOD DIPSTICK LARGE (NEGATIVE); URINE COLOR YELLOW; URINE GLUCOSE - DIPSTICK NEGATIVE (NEGATIVE); URINE KETONE NEGATIVE (NEGATIVE); URINE LEUK ESTERASE NEGATIVE (NEGATIVE); URINE NITRITE - DIPSTICK NEGATIVE (Negative); URINE PH 7.5 (4.5-8.0); URINE PROTEIN - DIPSTICK NEGATIVE (NEG-TRACE); URINE UROBILINOGEN - DIPSTICK 0.2 E.U./dL (0.2)
[2019-09-25 09:49] LABS: URINE MUCUS FEW hpf (NONE-FEW); URINE RBC 25-50 RBC/hpf (0-5); URINE SQUAMOUS EPITHELIAL CELL FEW EPI/hpf (0-FEW)
[2019-09-25] MEDS ORDERED: OXYCODONE5 MG PO (10:38)
[2019-09-25 10:40] VITALS: BP 140/64
[2019-10-17] MEDS ORDERED: HYDROCODONE/ACE1 TAB PO (16:10)
== END 2019-09-25 10:40 | disposition home or self-care (01) ==
LOC: ED 07:05
PROVIDERS: Emergency Medicine
DX: F11.23 Opioid dependence with withdrawal (principal); R53.1 Weakness; R55 Syncope and collapse; E11.621 Type 2 diabetes mellitus with foot ulcer; L97.419 Non-pressure chronic ulcer of right heel and midfoot with unspecified severity; I10 Essential (primary) hypertension; F17.200 Nicotine dependence, unspecified, uncomplicated

== ENCOUNTER 2019-10-04 12:40 | Emergency (ER) | payer MEDICARE, OTHER ==
[~2019-10-04] VITALS: Ht 177.8 cm; Wt 100.0 kg
[~2019-10-04 12:40] MED LIST changes: +OXYCODONE5 MG PO
[2019-10-04 14:56] VITALS: BP 179/93
[2019-10-17] MEDS ORDERED: HYDROCODONE/ACE1 TAB PO (16:10)
== END 2019-10-04 14:55 | disposition home or self-care (01) | DRG 638 ==
LOC: ED 12:40
DX: E11.621 Type 2 diabetes mellitus with foot ulcer (principal); L97.419 Non-pressure chronic ulcer of right heel and midfoot with unspecified severity; S92.001A Unspecified fracture of right calcaneus, initial encounter for closed fracture; I10 Essential (primary) hypertension; F17.200 Nicotine dependence, unspecified, uncomplicated; X58.XXXA Exposure to other specified factors, initial encounter